=== PATIENT | male | born 1975 | race Hispanic/Latino ===

== ENCOUNTER 2019-06-01 08:16 | Inpatient (IN) | payer SELFPAY ==
[~2019-06-01] VITALS: Ht 170.2 cm; Wt 65.9 kg
[2019-06-01 08:39] LABS: APPEARANCE,URINE SL CLOUDY (CLEAR); BILIRUBIN,URINE NEGATIVE (NEGATIVE); COLOR,URINE YELLOW (YELLOW); GLUCOSE, URINE (UA) NEGATIVE (NEGATIVE); KETONES,URINE 15 mg/dL (NEGATIVE); LEUKOCYTE ESTERASE ,URINE MODERATE (NEGATIVE); NITRATE,URINE NEGATIVE (NEGATIVE); OCCULT BLOOD,URINE SMALL (NEGATIVE); PROTEIN,URINE 30 mg/dL (NEGATIVE)
[2019-06-01 08:47] LABS: BASOPHILS % (AUTO) 0.4 % (0.0-5.0); EOSINOPHILS % (AUTO) 1.3 % (0.0-8.0); HEMATOCRIT 40.7 % (42-54); MEAN CORPUSCULAR HEMOGLOBIN 30.5 pg (27.0-33.0); MEAN CORPUSCULAR HGB CONC 34.2 g/dL (32.0-36.0); MEAN CORPUSCULAR VOLUME 89.3 fL (79-99); PLATELET COUNT (AUTO) 207 K/uL (130-400); RED BLOOD CELL COUNT(AUTO) 4.56 MIL/uL (4.50-6.20); RED CELL DISTRIBUTION WIDTH 11.9 % (11.0-15.5); WHITE BLOOD COUNT (AUTO) 9.5 K/uL (4.8-10.8)
[2019-06-01 08:57] LABS: INR 0.96 (0.85-1.15); PROTHROMBIN TIME 10.1 SEC (9.6-11.6)
[2019-06-01] MEDS ORDERED: CEFTRIAXONE SODIUM 1 GM ONE (09:04)
[2019-06-01] MEDS ORDERED: SODIUM CHLORIDE 0.9% 1000ML 2,000 ML IV ONE (09:05)
[2019-06-01] MEDS ORDERED: ACETAMINOPHEN EXTRA STRENGTH 500 MG TABLET ONE (09:05)
[2019-06-01 09:09] LABS: ALANINE AMINOTRANSFERASE 16 U/L (12-78); ALBUMIN 3.2 g/dL (3.5-5.0); ASPARTATE AMINOTRANSFERASE 15 U/L (10-37); BILIRUBIN,TOTAL 0.6 mg/dL (0.2-1.0); CARBON DIOXIDE 26 mmol/L (21-32); CHLORIDE 97 mmol/L (101-111); CREATINE KINASE, TOTAL 53 U/L (21-232); CREATININE 0.9 mg/dL (0.5-1.5); GLOMERULAR FILTR. RATE CALC 97 mL/min (>60); GLUCOSE,RANDOM 176 mg/dL (70-105); MYOGLOBIN 16 ng/mL (10-92); SODIUM SERUM 132 mmol/L (136-145); TOTAL PROTEIN, SERUM 7.6 g/dL (6.0-8.3); TROPONIN I < 0.04 ng/mL (0.00-0.06); UREA NITROGEN, BLOOD 8 mg/dL (7-18)
[2019-06-01 09:20] LABS: POTASSIUM 2.9 mmol/L (3.5-5.1)
[2019-06-01 09:27] LABS: BACTERIA,URINE Moderate /HPF (None Seen)
[2019-06-01 09:28] LABS: SQUAMOUS EPITHELIAL CELL,UR None Seen /HPF (0-2); WBC,URINE 26-50 /HPF (0-1)
[2019-06-01] MEDS ORDERED: POTASSIUM CHLORIDE 10% ELIXIR 20 MEQ/15 ML UDCUP PO PRN (11:15)
[2019-06-01] MEDS ORDERED: POTASSIUM CHLORIDE 20MEQ/100ML 100 ML IV PRN (11:15)
[2019-06-01] MEDS ORDERED: LIDOCAINE HCL-MPF 1% 2ML VIAL IV PRN (11:15)
[2019-06-01] MEDS ORDERED: ONDANSETRON HCL 4 MG/2 ML VIAL IVP PRN (11:30)
[2019-06-01] MEDS ORDERED: KETOROLAC TROMETHAMINE 15MG/ML IV PRN (11:30)
[2019-06-01] MEDS ORDERED: MAGNESIUM 2GM PREMIX 50ML 50 ML IV PRN (12:00)
[2019-06-01] MEDS ORDERED: POTASSIUM CHLORIDE 10MEQ/100ML 100 ML IV ONE (13:12)
[2019-06-01] MEDS ORDERED: LIDOCAINE HCL-MPF 1% 2ML VIAL ONE (13:17)
[2019-06-01] MEDS ORDERED: ACETAMINOPHEN 325 MG TAB ONE (13:28)
[2019-06-01 18:18] LABS: CREATININE 0.9 mg/dL (0.5-1.5); POTASSIUM 3.3 mmol/L (3.5-5.1)
[2019-06-01] MEDS ORDERED: CEFTRIAXONE SODIUM 2 GM VIAL IVP SCH (21:00)
[2019-06-01 21:08] VITALS: BP 124/78
[2019-06-01] MEDS: ACETAMINOPHEN 325 MG TAB PO PRN (21:09)
[2019-06-01] MEDS: ZOSYN 3.375GM+NS 50ML 50 ML IV SCH (21:59)
[2019-06-01] MEDS: SODIUM CHLORIDE 0.9% 1000ML 1,000 ML IV SCH (21:59)
[2019-06-01 23:56] VITALS: BP 111/66
[2019-06-02] MEDS: POTASSIUM CHLORIDE 20 MEQ ERTAB PO PRN ×3 (01:11→07:19)
[2019-06-02 04:31] LABS: BASOPHILS % (AUTO) 0.3 % (0.0-5.0); EOSINOPHILS % (AUTO) 0.4 % (0.0-8.0); HEMATOCRIT 36.5 % (42-54); MEAN CORPUSCULAR HEMOGLOBIN 30.5 pg (27.0-33.0); MEAN CORPUSCULAR VOLUME 89.9 fL (79-99); MONOCYTES % (AUTO) 15.5 % (3.0-13.0); NEUTROPHILS % (AUTO) 75.4 % (40.0-77.0); PLATELET COUNT (AUTO) 194 K/uL (130-400); RED BLOOD CELL COUNT(AUTO) 4.06 MIL/uL (4.50-6.20); RED CELL DISTRIBUTION WIDTH 11.9 % (11.0-15.5); WHITE BLOOD COUNT (AUTO) 10.2 K/uL (4.8-10.8)
[2019-06-02 04:40] VITALS: BP 108/67
[2019-06-02 04:53] LABS: CREATININE 0.9 mg/dL (0.5-1.5); MAGNESIUM 2.2 mg/dL (1.80-2.40); POTASSIUM 3.3 mmol/L (3.5-5.1)
[2019-06-02] MEDS: ZOSYN 3.375GM+NS 50ML 50 ML IV SCH ×3 (05:12→20:53)
[2019-06-02] MEDS: SODIUM CHLORIDE 0.9% 1000ML 1,000 ML IV SCH ×2 (07:19→17:02)
--- NOTE | 2019-06-02 07:50 | NUR ---
ASSESSMENT PT IS AAOX3 DENIES CP DENIES SOB DENIES AT THIS TIME RESTING IN BED. VISITOR IS AT BEDSIDE, CALL LIGHT WITHIN REACH.
[2019-06-02 07:54] VITALS: BP 117/72
[2019-06-02 11:47] VITALS: BP 121/76
[2019-06-02 15:52] VITALS: BP 121/68
--- NOTE | 2019-06-02 17:00 | NUR ---
MD ROUNDS /DISCHARGE DR Gavi GONZALEZ AND DR COREY ROUNDED, OK TO DC HOME PIV REMOVED CATH TIP INTACT, TELE PACK REMOVED. DC INSTRUCTIONS GIVEN AND AGREE TO TAKE MEDS ORDERED, ALL QUESTIONS ANSWERED, AGREE TO FOLLOW UP WITH [facility] WITH DR LIM. AWAITING RIDShalom. Addendum: 06/02/19 at 1716 by KEEGAN LANDIN RN RN THIS ENTIRE NOTE ENTERED IN ERROR, DISREGARD
--- NOTE | 2019-06-02 17:00 | NUR ---
STATUS RESTING IN BED NO COMPLAINTS, FAMILY IS AT BEDSIDE
[2019-06-02] MEDS: ACETAMINOPHEN 325 MG TAB PO PRN (18:29)
[2019-06-02 20:20] VITALS: BP 117/71
[2019-06-02 23:53] VITALS: BP 120/76
[2019-06-03] MEDS: ZOSYN 3.375GM+NS 50ML 50 ML IV SCH ×3 (03:52→21:35)
[2019-06-03 04:12] VITALS: BP 126/78
[2019-06-03] MEDS: ACETAMINOPHEN 325 MG TAB PO PRN ×2 (04:15→18:21)
[2019-06-03 04:33] LABS: MEAN CORPUSCULAR HEMOGLOBIN 30.1 pg (27.0-33.0); MEAN CORPUSCULAR HGB CONC 33.2 g/dL (32.0-36.0); MEAN CORPUSCULAR VOLUME 90.7 fL (79-99); PLATELET COUNT (AUTO) 207 K/uL (130-400); RED BLOOD CELL COUNT(AUTO) 4.08 MIL/uL (4.50-6.20); RED CELL DISTRIBUTION WIDTH 11.9 % (11.0-15.5); WHITE BLOOD COUNT (AUTO) 9.9 K/uL (4.8-10.8)
[2019-06-03 04:44] LABS: CREATININE 0.8 mg/dL (0.5-1.5); POTASSIUM 3.7 mmol/L (3.5-5.1)
[2019-06-03 05:27] LABS: BAND NEUTROPHILS % (MANUAL) 52 % (0-2); LYMPHOCYTES % (MANUAL) 19 % (22-44); MONOCYTES % (MANUAL) 6 % (2-9); SEGMENTED NEUTROPHILS % 23 % (40-70)
[2019-06-03 05:28] LABS: MAN.DIFF COMMENT-IMPRESSION MANUAL DIFFERENTIAL; PLATELET MORPHOLOGY COMMENT ADEQUATE
[2019-06-03] MEDS: SODIUM CHLORIDE 0.9% 1000ML 1,000 ML IV SCH ×3 (06:04→21:36)
[2019-06-03 07:20] VITALS: BP 116/76
--- NOTE | 2019-06-03 07:30 | NUR ---
ASSESSMENT PT IS AAOX3 DENIES CP DENIES SOB DENIES NV NO COMPLAINTS, RESTING IN BED. CALL LIGHT WITHIN REACH. VISITOR AT BEDSIDE.
[2019-06-03 11:00] VITALS: BP 131/83
--- NOTE | 2019-06-03 11:56 | NUR ---
REPORT GIVEN TO SARAH WILLIS
--- NOTE | 2019-06-03 12:20 | NUR ---
PATIENT TRANSFERRED UP TO ROOM 410 ALL BELONGINGS TAKEN WITH PATIENT, FAMILY IS WITH PATIENT. TELE REMOVED.
--- NOTE | 2019-06-03 12:45 | NUR ---
PT FROM [facility], ORIENTATED TO HIS CARE, AND ENVIROMENT. DENIES ANY FLANK PAIN AND CALL LIGHT IN REACH..
[2019-06-03 16:00] VITALS: BP 129/70
--- NOTE | 2019-06-03 16:50 | NUR ---
Nutrition intervention: Nutrition notification for malnutrition. Pt admitted for pyelonephritis, sepsis. He is currently on regular diet with good oral intake of outside food. Pt states he dislikes hospital food. Pt reports no nutrition concerns with N/V/D, chewing or swallowing difficulties. At time of RD assessment, pt appears well nourished with no nutritional deficit. Labs WNL. Pt encouraged to increase water intake for improved health. Pt verbalize understanding. Recommendations: Continue current diet. Monitor I/O. Consult RD as nutrition concern arise. Addendum: 06/03/19 at [address] RD Amended: Links added.
--- NOTE | 2019-06-03 17:39 | NUR ---
INITIAL: Met with pt and family this afternoon to discuss dcp. Pt mentions that he lives w his spouse and children. Pt mentions that prior to admission he was independent w ambulation and ADLs. He does not own any DME or receive services. Per pt he feels safe and comfortable to [place] home at [place]. Low income packet provided. CM to continue to follow and wait for Md recommendations. Addendum: 06/03/19 at 1741 by MELVIN MUJICA Amended: Links added.
[2019-06-03 19:20] VITALS: BP 131/74
[2019-06-03 23:22] VITALS: BP 118/70
[2019-06-04 03:20] VITALS: BP 133/79
[2019-06-04] MEDS: ZOSYN 3.375GM+NS 50ML 50 ML IV SCH ×2 (04:41→11:43)
[2019-06-04 05:06] LABS: HEMATOCRIT 34.6 % (42-54); MEAN CORPUSCULAR HEMOGLOBIN 30.1 pg (27.0-33.0); MEAN CORPUSCULAR HGB CONC 33.5 g/dL (32.0-36.0); MEAN CORPUSCULAR VOLUME 89.9 fL (79-99); PLATELET COUNT (AUTO) 215 K/uL (130-400); RED BLOOD CELL COUNT(AUTO) 3.85 MIL/uL (4.50-6.20); RED CELL DISTRIBUTION WIDTH 12.1 % (11.0-15.5); WHITE BLOOD COUNT (AUTO) 7.1 K/uL (4.8-10.8)
[2019-06-04 05:17] LABS: CREATININE 0.8 mg/dL (0.5-1.5)
[2019-06-04 05:24] LABS: BAND NEUTROPHILS % (MANUAL) 26 % (0-2); BASOPHILS % (MANUAL) 2 % (0-2); LYMPHOCYTES % (MANUAL) 20 % (22-44); MAN.DIFF COMMENT-IMPRESSION MANUAL DIFFERENTIAL; MONOCYTES % (MANUAL) 2 % (2-9); PLATELET MORPHOLOGY COMMENT ADEQUATE; SEGMENTED NEUTROPHILS % 50 % (40-70)
[2019-06-04] MEDS: POTASSIUM CHLORIDE 20 MEQ ERTAB PO PRN ×2 (05:39→11:43)
[2019-06-04] MEDS: ACETAMINOPHEN 325 MG TAB PO PRN (06:40)
[2019-06-04 07:37] VITALS: BP 131/76
[2019-06-04] MEDS ORDERED: LEVOFLOXACIN 500 MG TABLET PO SCH (11:00)
[2019-06-04 11:12] VITALS: BP 110/70
[2019-06-04] MEDS ORDERED: POTASSIUM CHLORIDE 20 MEQ ERTAB PO SCH ×3 (12:00→17:35)
[2019-06-04 16:16] VITALS: BP 130/71
[2019-06-04] MEDS ORDERED: LEVO500T2 PO (16:17)
--- NOTE | 2019-06-04 20:00 | NUR ---
PATIENT AWAKE AND ALERT, GIVEN DISCHARGE INSTRUCTIONS AND EDUCATION, INCLUDING SIDE EFFECTS ON NEW PRESCRIBED MEDICATIONS AND FOLLOW UP APPOINTMENT NEEDED TO BE MADE BY PATIENT. LIST ATTACHED OF PCPS. PATIENT VERBALIZED UNDERSTANDING OF ALL EDUCATION GIVEN VIA TEACH BACK. NO QUESTIONS OR CONCERNS VOICED AT THIS TIME. VITALS STABLE. AFEBRILE. IV DISCONTINUED, CATHETER INTACT. NO SIGNS OR SYMPTOMS OF DISTRESS NOTED. PATIENT LEFT WITH FAMILY AT SIDE TO PRIVATE CAR. ALL BELONGINGS TAKEN WITH. Addendum: 06/04/19 at 2219 by RAOUL MCKNIGHT RN RN Amended: Links added.
[2019-06-05] MEDS ORDERED: LEVOFLOXACIN 500 MG TABLET PO SCH (09:00)
== END 2019-06-04 20:25 | disposition home or self-care (01) | DRG 872 ==
LOC: EDH 08:16 → EDHIP 08:17 → 2DH 20:26 → 4BH 06-03 12:20
PROVIDERS: ADMIT Internal Medicine; ATTEND Internal Medicine
DX: A41.9 Sepsis, unspecified organism (principal); N12 Tubulo-interstitial nephritis, not specified as acute or chronic; N39.0 Urinary tract infection, site not specified; E87.6 Hypokalemia; B96.20 Unspecified Escherichia coli [E. coli] as the cause of diseases classified elsewhere; E83.42 Hypomagnesemia; K76.0 Fatty (change of) liver, not elsewhere classified
CPT/HCPCS: 36415; 71045; 76770; 80048; 80053; 81001; 82550; 83605; 83735; 83874; 84132; 84145; 84484; 85025; 85610; 85730; 87040; 87077; 87088; 87186; 87804; 93005; G0378; J0696; J1885; J2543; J3475; J3490; J7030

== ENCOUNTER 2019-10-09 09:59 | Emergency (ER) | payer OTHER, SELFPAY ==
[~2019-10-09 09:59] MED LIST: LEVO500T2 PO
[2019-10-09] MEDS ORDERED: CEFTRIAXONE SODIUM 1 GM ONE (10:52)
[2019-10-09] MEDS ORDERED: KETOROLAC TROMETHAMINE 60 MG/2 ML VIAL ONE (10:52)
[2019-10-09] MEDS ORDERED: LIDOCAINE HCL-MPF 1% 2ML VIAL ONE (10:52)
== END 2019-10-09 11:23 | disposition home or self-care (01) ==
LOC: EDH 09:59
DX: L03.113 Cellulitis of right upper limb (principal)
CPT/HCPCS: 96372 ×2; 99284; J0696; J1885; J3490

== ENCOUNTER 2021-05-20 22:15 | Emergency (ER) | payer SELFPAY ==
[~2021-05-20] VITALS: Ht 167.6 cm; Wt 68.9 kg
[2021-05-20] MEDS ORDERED: 0.9%NACL 1000ML 1,000 ML IV ONE (23:30)
[2021-05-20] MEDS ORDERED: DiphenhydrAMINE HCL 50 MG/ML VIAL IV ONE (23:30)
[2021-05-20] MEDS ORDERED: ONDANSETRON 4MG INJ IVP ONE (23:30)
[2021-05-20 23:35] LABS: BASOPHILS % (AUTO) 0.4 % (0.0-5.0); EOSINOPHILS % (AUTO) 0.1 % (0.0-8.0); LYMPHOCYTES % (AUTO) 7.5 % (21.0-51.0); MEAN CORPUSCULAR HEMOGLOBIN 31.3 pg (27.0-33.0); MEAN CORPUSCULAR HGB CONC 33.7 g/dL (32.0-36.0); NEUTROPHILS % (AUTO) 87.6 % (40.0-77.0); PLATELET COUNT (AUTO) 221 K/uL (130-400); RED BLOOD CELL COUNT(AUTO) 4.41 MIL/uL (4.50-6.20); RED CELL DISTRIBUTION WIDTH 11.9 % (11.0-15.5); WHITE BLOOD COUNT (AUTO) 9.4 K/uL (4.8-10.8)
[2021-05-20] MEDS ORDERED: ONDANSETRON 4MG INJ ONE (23:41)
[2021-05-20] MEDS ORDERED: DiphenhydrAMINE HCL 50 MG/ML VIAL ONE (23:41)
[2021-05-20 23:45] LABS: CREATININE 0.7 mg/dL (0.5-1.5); POTASSIUM 3.4 mmol/L (3.5-5.1)
[2021-05-20 23:50] LABS: ALBUMIN 3.9 g/dL (3.5-5.0); BILIRUBIN,TOTAL 0.2 mg/dL (0.2-1.0); TOTAL PROTEIN, SERUM 7.6 g/dL (6.0-8.3)
[2021-05-21] MEDS ORDERED: METO-296 PO (01:13)
[2021-05-21] MEDS ORDERED: ONDA4TAB10 PO (01:13)
[2021-05-21] MEDS ORDERED: MECL-160 PO (01:13)
[2021-05-21 01:20] LABS: APPEARANCE,URINE Clear (CLEAR); BILIRUBIN,URINE Negative (NEGATIVE); COLOR,URINE Yellow (YELLOW); GLUCOSE, URINE (UA) Negative (NEGATIVE); KETONES,URINE Trace mg/dL (NEGATIVE); LEUKOCYTE ESTERASE ,URINE Negative (NEGATIVE); NITRATE,URINE Negative (NEGATIVE); OCCULT BLOOD,URINE Negative (NEGATIVE); PROTEIN,URINE Negative (NEGATIVE); UROBILINOGEN,URINE 0.2 mg/dL (0.2-1.0)
[2021-05-21 01:24] VITALS: BP 142/78
== END 2021-05-21 02:08 | disposition home or self-care (01) ==
LOC: EDH 22:15
DX: E86.9 Volume depletion, unspecified (principal); H81.10 Benign paroxysmal vertigo, unspecified ear; R11.2 Nausea with vomiting, unspecified; Z79.899 Other long term (current) drug therapy
CPT/HCPCS: 36415; 71045; 80053; 81003; 84484; 85025; 93005; 96361; 96374; 96375; 99285; J1200; J2405

== ENCOUNTER 2024-04-11 18:01 | Emergency (ER) | payer OTHER ==
[~2024-04-11] VITALS: Ht 170.2 cm; Wt 68.0 kg
[~2024-04-11 18:01] MED LIST changes: +MECL-302 PO; +METO-296 PO; +ONDA-243 PO
[2024-04-11 21:40] LABS: BASOPHILS # (AUTO) 0.04 K/uL (0.00-0.20); BASOPHILS % (AUTO) 0.3 % (0.0-5.0); EOSINOPHILS # (AUTO) 0.14 K/uL (0.00-0.70); IMMATURE GRANULOCYTE ABSOLUTE 0.07 K/uL (0-1); LYMPHOCYTES # (AUTO) 1.4 K/uL (1.0-4.8); LYMPHOCYTES % (AUTO) 9.8 % (21.0-51.0); MEAN CORPUSCULAR HEMOGLOBIN 30.9 pg (27.0-33.0); MEAN CORPUSCULAR HGB CONC 32.9 g/dL (32.0-36.0); MONOCYTES # (AUTO) 1.4 K/uL (0.1-1.0); NEUTROPHILS # (AUTO) 11.1 K/uL (1.8-7.7); NEUTROPHILS % (AUTO) 78.4 % (40.0-77.0); PLATELET COUNT (AUTO) 272 K/uL (130-400); RED BLOOD CELL COUNT(AUTO) 4.47 MIL/uL (4.50-6.20); WHITE BLOOD COUNT (AUTO) 14.1 K/uL (4.8-10.8)
--- NOTE | 2024-04-11 21:57 | HMCIMG ---
US SCROTUM & CONTENTS HISTORY: No additional history given. COMPARISON: None TECHNIQUE: Duplex scrotal ultrasound study was performed. FINDINGS: The right testis measures 4.2 cm. The left testis measures 3.9 cm. There is increased vascularity of the left testicle with homogeneous echogenicity. The left epididymis is enlarged and there is a common proximal left hydrocele as well as increased vascularity of the left epididymis. The right testicle demonstrates normal size and echogenicity. There appears to be a omentum containing right inguinal hernia. IMPRESSION: 1. Findings most consistent with left epididymitis and likely developing orchitis with complex left hydrocele.
[2024-04-11 21:58] LABS: POTASSIUM 3.3 mmol/L (3.5-5.1)
--- NOTE | 2024-04-11 22:22 | ERN ---
General Chief Complaint: Testicular Injury/Pain Stated Complaint: LEFT TESTICULAR SWELLING Time Seen by MD: 18:16 Time Seen by Midlevel: 18:16 Source: patient History of Present Illness Initial Comments Patient is a 48-year-old male with no significant past medical history presenting for evaluation of left testicular swelling and pain that has been ongoing for the last week. Patient denies any direct injury to the area. Denies any dysuria/hematuria, or any other symptoms at this time. Allergies: Coded Allergies: No Known Allergies (Verified Allergy, Unknown, 06/01/19) Home Meds Active Scripts Meclizine HCl (Meclizine HCl) 25 Mg Tablet, 25 MG PO Q6HPRN, #20 TAB 0 Refills Prov:YAW PADRON MD 05/21/21 Metoclopramide HCl (Reglan) 10 Mg Tablet, 10 MG PO TIDP, #20 TAB 0 Refills Prov:YAW PADRON MD 05/21/21 Ondansetron (Ondansetron Odt) 4 Mg Tab.rapdis, 4 MG PO Q6HPRN, #20 TAB 0 Refills Prov:YAW PADRON MD 05/21/21 Levofloxacin (Levaquin) 500 Mg Tablet, 500 MG PO Q24H for 7 Days, #7 TAB Prov:NEGRITA OGDEN NP 06/04/19 Past Medical History Past Medical History: No Pertinent History Past Surgical History: None Social History Social History: ETOH ROS Dictation CONSTITUTIONAL: Negative except for HPI HEAD/FACE: Negative except for HPI EENT: Negative except for HPI RESPIRATORY: Negative except for HPI GASTROINTESTINAL/ABDOMINAL: Negative except for HPI GENITOURINARY: Negative except for HPI MUSCULOSKELETAL: Negative except for HPI INTEGUMENTARY: Negative except for HPI NEUROLOGICAL/PSYCH: Negative except for HPI HEMATOLOGIC/LYMPHATIC: Negative except for HPI All Systems Negative, Except as noted above. 13 point review of systems assessed and all negative except for above. Physical Exam Physical Exam Dictation Vital Signs reviewed General Appearance: Alert, oriented x 3, no acute distress, well developed, nourished. Head and Face: non-traumatic. Eyes: PERRL, pink conjunctivas, eyelid no trauma, anterior chamber with arcus senilis. Ears: Pinnas intact and no signs of trauma or erythema ear canals clear and no discharge TM no erythema Nose: No discharge, no bleeding. Oropharynx: Mouth normal, tongue pink, pharynx clear,no erythema, tonsils no exudates, no abscesses noted, mucous membrane moist Neck: Supple, non-tender, no thyromegaly, no masses, no JVD, no bruits Breast:Deferred Chest:No tenderness, no crepitus, no paradoxical movement, no retractions Lungs:Clear, well-ventilated, symmetric, no rales, no wheezing, no rhonchi, no stridor, good breath sounds bilaterally Heart: Regular rate, regular rhythm, no murmur, no gallops Vascular: no peripheral edema, Abdomen: Soft, positive bowel sounds, nondistended, no guarding, nontender, no rebound, no masses no hepatomegaly, no splenomegaly, no Matthews's sign, no hernias. Rectal: Deferred Genital: Left-sided scrotal swelling, no purulent discharge Neurological: Normal speech, motor function intact, sensory function intact Musculoskeletal: Neck nontender, full range of motion, back nontender, full range of motion, Extremities: nontender, full range of motion Skin: Color pink, dry, no turgor, no rash, no lacerations, no abrasions, no c ontusions. Lymphatic: Deferred Results Laboratory and Microbiology Lab and Micro Result Laboratory Tests Test 04/11/24 21:33 04/11/24 22:52 White Blood Count 14.1 K/uL (4.8-10.8) H Red Blood Count 4.47 MIL/uL (4.50-6.20) L Hemoglobin 13.8 g/dL (14.0-18.0) L Hematocrit 42.0 % (42-54) Mean Corpuscular Volume 94.0 fL (79-99) Mean Corpuscular Hemoglobin 30.9 pg (27.0-33.0) Mean Corpuscular Hemoglobin Concent 32.9 g/dL (32.0-36.0) Red Cell Distribution Width 12.0 % (11.0-15.5) Platelet Count 272 K/uL (130-400) Mean Platelet Volume 9.5 fL (7.5-10.5) Immature Granulocyte % (Auto) 0.5 % (0-1) Neutrophils (%) (Auto) 78.4 % (40.0-77.0) H Lymphocytes (%) (Auto) 9.8 % (21.0-51.0) L Monocytes (%) (Auto) 10.0 % (3.0-13.0) Eosinophils (%) (Auto) 1.0 % (0.0-8.0) Basophils (%) (Auto) 0.3 % (0.0-5.0) Neutrophils # (Auto) 11.1 K/uL (1.8-7.7) H Lymphocytes # (Auto) 1.4 K/uL (1.0-4.8) Monocytes # (Auto) 1.4 K/uL (0.1-1.0) H Eosinophils # (Auto) 0.14 K/uL (0.00-0.70) Basophils # (Auto) 0.04 K/uL (0.00-0.20) Absolute Immature Granulocyte (auto 0.07 K/uL (0-1) Nucleated Red Blood Cells 0.0 % (0.0-0.19) White Cell Morphology Comment See comments Sodium Level 137 mmol/L (136-145) Potassium Level 3.3 mmol/L (3.5-5.1) L Chloride Level 99 mmol/L (101-111) L Carbon Dioxide Level 34 mmol/L (21-32) H Blood Urea Nitrogen 17 mg/dL (7-18) Creatinine 1.0 mg/dL (0.5-1.3) Glomerular Filtration Rate Calc 92 mL/min (>90) Random Glucose 115 mg/dL (70-105) H Total Calcium 9.4 mg/dL (8.5-10.1) Urine Color YELLOW (YELLOW) Urine Appearance CLEAR (CLEAR) Urine pH 6.5 (5.0-8.0) Urine Specific [place] 1.039 (1.001-1.031) Urine Protein 70 mg/dL (NEGATIVE) H Urine Glucose (UA) NEGATIVE mg/dL (NEGATIVE) Urine Ketones 5 mg/dL (NEGATIVE) H Urine Occult Blood SMALL (NEGATIVE) H Urine Nitrate NEGATIVE (NEGATIVE) Urine Bilirubin NEGATIVE mg/dL (NEGATIVE) Urine Urobilinogen 6 mg/dL (0.2-1.0) H Urine Leukocyte Esterase 250 [place]/uL (NEGATIVE) H Urine RBC 26-50 /HPF (0-1) H Urine WBC 26-50 /HPF (0-1) H Urine WBC Clumps (Auto) 2-5 /HPF (0-1) H Urine Squamous Epithelial Cells RARE /HPF (0-2) Urine Bacteria RARE /HPF (None Seen) Labs Reviewed?: Yes MDM MDM: Patient is a 48-year-old male with no significant past medical history presenting for evaluation of left testicular swelling and pain that has been ongoing for the last week. Patient denies any direct injury to the area. Denies any dysuria/hematuria, or any other symptoms at this time. On physical examination patient has swelling and tenderness to the left side of the scrotum. A ultrasound was ordered to rule out a testicular torsion. His ultrasound reveals left epididymitis that is likely progressing to orchitis. His CBC shows leukocytosis with a left shift. Patient will be treated for epididymitis and orchitis. He is currently sexually active but denies any concern for sexually transmitted disease. He will be treated with 1 g Rocephin and 1 g of azithromycin in the ER. He will be sent home with a prescription for levofloxacin 500 mg b.i.d. for 10 days. He will need to see Urology outpatient for repeat evaluation and further evaluation of his complex hydrocele of the left testicle. Differential diagnosis: Epididymitis, testicular torsion, urinary tract infection There are no social concerns with this patient. Prescription drug management Prescriptions will include: Levofloxacin 500 mg b.i.d. for 10 days Medical management and examination interpretation discussions were had by me with other qualified healthcare professionals as indicated for the patient's care. ED Course Orders Procedure Category Date Status Time Urinalysis Profile LAB 04/11/24 Complete 18:40 Us Scrotum & Contents US 04/11/24 Resulted 18:40 Cbc With Differential LAB 04/11/24 Complete 21:20 Basic Metabolic Panel LAB 04/11/24 Complete 21:20 Ceftriaxone 1g Vial PHA 04/11/24 Complete (Rocephine 1g Inj) 22:30 Azithromycin PHA 04/11/24 Complete (Zithromax) 22:30 Culture Urine LAUREN 04/11/24 In Process 23:06 Current Medications Medications (Trade) Dose Ordered Sig/Lary Route PRN Reason Start Time Stop Time Status Last Admin Dose Admin Azithromycin (Zithromax) 1,000 mg ONCE ONCE PO 04/11/24 22:30 04/11/24 22:31 DC 04/11/24 22:54 Ceftriaxone Sodium (ROCEphine 1G INJ) 1 gm ONCE ONCE IVPB 04/11/24 22:30 04/11/24 22:31 DC 04/11/24 22:54 Vital Signs Date Time Temp Pulse Resp B/P (MAP) Pulse Ox O2 Delivery O2 Flow Rate FiO2 04/11/24 18:02 97.9 85 16 143/85 99 Room Air 0 [facility] [address] [place] [address] IMAGING REPORT Signed PATIENT: KAIA LOMAX MR#: [id number] : 1975 SEX: M AGE: 48 LOCATION: [facility] ORDER 40 STATUS: REG REPORT#: [id number] SERVICE 39 REASON: left sided swelling/pain ORDERING PHYSICIAN: LORE NATHAN PROCEDURE: SCROTUM - US SCROTUM & CONTENTS US SCROTUM & CONTENTS HISTORY: No additional history given. COMPARISON: None TECHNIQUE: Duplex scrotal ultrasound study was performed. FINDINGS: The right testis measures 4.2 cm. The left testis measures 3.9 cm. There is increased vascularity of the left testicle with homogeneous echogenicity. The left epididymis is enlarged and there is a common proximal left hydrocele as well as increased vascularity of the left epididymis. The right testicle demonstrates normal size and echogenicity. There appears to be a omentum containing right inguinal hernia. IMPRESSION: 1. Findings most consistent with left epididymitis and likely developing orchitis with complex left hydrocele. DICTATED BY: GINETTE CORONADO DO DATE: 04/11/242152 ELECTRONICALLY SIGNED BY: GINETTE CORONADO DO DATE: 04/11/242156 DX & DISP Disposition: Discharge Departure Impression: Primary Impression: Left epididymitis Additional Impressions: Left hydrocele, Orchitis, left, Scrotal swelling, Urinary tract infection Condition: Stable Additional Instructions: Your ultrasound results are most consistent with left epididymitis that is likely developing into orchitis. This will need to be treated with antibiotics. You were given ceftriaxone and azithromycin in the emergency department. You will be discharged home with a prescription for levofloxacin 500 mg to be taken twice a day for 10 days. It is extremely important that you follow up with the urologist. You can follow up with Dr. Fleming. I have given you his contact information along with his address and phone number so you can go ahead and make an appointment as soon as possible. There was also a left hydrocele noted on the ultrasound. This will need to be evaluated further by the urologist. Please take your antibiotics as prescribed. Return to the ER if he develop any new or worsening symptoms. Referrals: SELF,REFERRAL (PCP) Time of Disposition: 22:11 I have reviewed the case, and I agree with, Diagnosis and Plan LORE NATHAN Apr 11, 2024 22:22
[2024-04-11] MEDS: cefTRIAXone 1G VIAL IVPB ONE (22:54)
[2024-04-11] MEDS: AZITHROMYCIN 250 MG TABLET PO ONE (22:54)
[2024-04-11 23:00] LABS: APPEARANCE,URINE CLEAR (CLEAR); BILIRUBIN,URINE NEGATIVE (NEGATIVE); COLOR,URINE YELLOW (YELLOW); GLUCOSE, URINE (UA) NEGATIVE (NEGATIVE); KETONES,URINE 5 mg/dL (NEGATIVE); LEUKOCYTE ESTERASE ,URINE 250 Leu/uL (NEGATIVE); NITRATE,URINE NEGATIVE (NEGATIVE); OCCULT BLOOD,URINE SMALL (NEGATIVE); PH,URINE 6.5 (5.0-8.0); PROTEIN,URINE 70 mg/dL (NEGATIVE); UROBILINOGEN,URINE 6 mg/dL (0.2-1.0)
[2024-04-11 23:06] LABS: ADD UA MICROSCOPIC YES
[2024-04-11 23:10] LABS: BACTERIA,URINE RARE /HPF (None Seen); MUCUS,URINE FEW LPF (None Seen); RBC,URINE 26-50 /HPF (0-1); SQUAMOUS EPITHELIAL CELL,UR RARE /HPF (0-2); WBC,URINE 26-50 /HPF (0-1)
[2024-04-11 23:39] VITALS: BP 133/90; PULSE 70; RESP 16; TEMP 98; O2SAT 99
== END 2024-04-12 00:03 | disposition home or self-care (01) ==
LOC: EDH 18:01
DX: N45.3 Epididymo-orchitis (principal); N43.3 Hydrocele, unspecified; N39.0 Urinary tract infection, site not specified
CPT/HCPCS: 99285; 96374; 80048; 85025; 87086 ×2; 87186; 81001; 36415; 76870; J0696